=== PATIENT | female | born 2000 | race Caucasian/White ===

== ENCOUNTER 2021-09-21 14:34 | Emergency (ER) | payer OTHER, SELFPAY ==
[~2021-09-21] VITALS: Ht 149.9 cm; Wt 54.4 kg
--- NOTE | 2021-09-21 14:34 | NUR ---
Pt triaged and placed in hallway 1.
--- NOTE | 2021-09-21 14:35 | NUR ---
Pt BIBA re L knee dislocation while wrestling. Pain 06/27. Patient has had knee dislocate before but it has "popped back into place"-this time it did not relocate. Awaiting MD evaluation.
[2021-09-21 14:40] VITALS: BP_SYST 112
--- NOTE | 2021-09-21 14:45 | NUR ---
Dr Petersen to bedside to assess patient
[2021-09-21] MEDS ORDERED: MORPHINE 4 MG INJ. 4 MG/ML VIAL ONE (14:50)
[2021-09-21] MEDS ORDERED: MORPHINE 4 MG INJ. 4 MG/ML VIAL IVP ONE (15:00)
--- NOTE | 2021-09-21 15:10 | NUR ---
Patient transported to CT scan via cyndee Addendum: 09/21/21 at 1829 by [email or web address] *John
[2021-09-21] MEDS ORDERED: TRAM50TA PO ×2 (17:13→18:23)
[2021-09-21] MEDS ORDERED: IBUP-1969 PO ×2 (17:13→18:23)
--- NOTE | 2021-09-21 18:27 | NUR ---
Patient given written and verbal discharge instructions and verbalizes understanding. ER MD discussed with patient the results and treatment provided. Patient in stable condition. ID arm band removed. IV catheter removed intact and dressing applied, no active bleeding. Rx of Tramamdol and Motrin given. Patient educated on pain management and to follow up with PMD. Pain scale 2/10. Opportunity for questions provided and answered. Medication side effect fact sheet provided.
[2021-09-21 18:28] VITALS: BP_SYST 112
--- NOTE | 2021-09-21 18:30 | NUR ---
Patient discharged with crutches in use. Crutched fitted for patient height; education provided on how to use. R knee immoilizer also in place per order.
== END 2021-09-21 18:28 | disposition home or self-care (01) ==
LOC: SED 14:34
DX: S83.005A Unspecified dislocation of left patella, initial encounter (principal); S76.112A Strain of left quadriceps muscle, fascia and tendon, initial encounter; Y93.72 Activity, wrestling; Y92.89 Other specified places as the place of occurrence of the external cause; Y99.8 Other external cause status; X50.1XXA Overexertion from prolonged static or awkward postures, initial encounter
CPT/HCPCS: 27560; 73560; 73564; 96374; 99284; J2270